=== PATIENT | female | born 1975 | race Caucasian/White ===

== ENCOUNTER 2016-09-11 12:59 | Observation (INO) | payer OTHER ==
--- NOTE | 2016-09-11 14:19 | EDPHY ---
H & P Stated Complaint: SA Source: Family - Personal History Current Tetanus Diphtheria and Acellular Pertussis (TDAP): Unsure - Medical/Surgical History Hx Asthma: Yes Hx Chronic Respiratory Disease: No Hx Diabetes: No Hx Cardiac Disease: No Hx Renal Disease: No Hx Cirrhosis: No Hx Alcoholism: No Hx HIV/AIDS: No Hx Splenectomy or Spleen Trauma: No - Social History Smoking Status: Former smoker HPI/ROS: CHIEF COMPLAINT: Chronic pain, ingestion of multiple pain medications HISTORY OF PRESENT ILLNESS: patient has a history of stage IV colon cancer, she is on home hospice. She had missed at 10:00 a.m. taking multiple doses of morphine, Dilaudid and methadone. She wants to intervene and she did not want to kill herself. She denies any suicidal ideation. She has 4 out of 10 pain despite all this. She has chronic abdominal pain due to this without any positive prognosis. REVIEW OF SYSTEMS: Ten systems reviewed and are negative unless otherwise noted in the HPI EXAMINATION General Appearance: Somnolence but awakes easily Head: normocephalic, atraumatic Eyes: Pupils equal and round, no conjunctival pallor or injection ENT, Mouth: Mucous membranes moist Neck: Normal inspection, supple, non-tender Respiratory: Lungs are clear to auscultation Cardiovascular: tachycardic but regular rhythm. Gastrointestinal: Abdomen is soft , but tender in all quadrants. No rigidity or tympany Neurological: alert to person and place. Intermittently Alert time. No focal deficits obtainable Skin: Warm and dry, no rash Extremities: Nontender, no pedal edema DIFFERENTIAL DIAGNOSES: Including but not limited to MDM: Intentional excessive intake of multiple narcotics without intent of dying. Patient admits to wanting her pain. Does not want to , but the pain was severe enough that it has caused her to think about this. We discussed this with the family actually do want her admitted for observation. I have discussed the case with the hospitalist, she will be admitted to the ICU for Close monitoring at this time. SUPERVISION: Patient was evaluated in conjunction with the supervising physician. Please see their note for details. (Aaron Hawley) Constitutional: Initial Vital Signs Temperature (C) 37.2 C 09/11/16 13:30 Heart Rate 122 H 09/11/16 13:30 Respiratory Rate 14 09/11/16 13:30 Blood Pressure 122/79 H 09/11/16 13:30 O2 Sat (%) 96 09/11/16 13:30 O2 Delivery Mode Nasal Cannula O2 (L/minute) 2 Home Medications: Medication Instructions Recorded HYDROmorphONE HCL [Dilaudid] 8 mg PO Q1-2PRN PRN 09/11/16 LORazepam [Ativan (*)] 0.5 mg PO DAILY PRN 09/11/16 Methadone HCl [Methadone 5 mg (*)] 5 mg PO TID 09/11/16 Methadone HCl [Methadone HCl 10 mg 10 mg PO TID 09/11/16 (*)] Ondansetron Odt [Zofran Odt 4 mg 8 mg PO Q4 PRN 09/11/16 (*)] morphINE SR [Ms Contin/Oramorph 100 mg PO BID 09/11/16 100 mg (*)] Medical Decision Making ED Course/Re-evaluation: This patient was seen and examined by me. She opens her eyes to voice. Decreased respiratory effort, lungs are clear to auscultation. Oxygen saturation is adequate on 2 L by nasal cannula. I discussed this case with patient's fiancee and her hospice caregivers. No suicidal intent. Given long- acting narcotics and respiratory depression, I will admit her to the ICU for observation. (Susan Schmid) - Data Points Medications Given: Discontinued Medications Sodium Chloride (Ns) 1,000 mls @ 0 mls/hr IV ONCE ONE PRN Reason: Wide Open Stop: 09/11/16 14:23 Last Admin: 09/11/16 14:42 Dose: 1,000 mls Departure - Departure Disposition: [facility] Inpatient Acute Clinical Impression: Narcotic overdose Qualifiers: Encounter type: initial encounter Injury intent: undetermined intent Qualifier Code: (T40.604A) Poisoning by unspecified narcotics, undetermined, initial encounter Colon cancer Qualifiers: Colon location: unspecified part of colon Qualifier Code: (C18.9) Malignant neoplasm of colon, unspecified Condition: Serious
[2016-09-11] MEDS ORDERED: NS 1,000 ML IV ONE (14:22)
[2016-09-11 15:50] VITALS: O2SAT 96
[2016-09-11] MEDS ORDERED: HYDROmorphONE/DILAUDID 1 MG/ML SYR IVP PRN (16:38)
[2016-09-11] MEDS ORDERED: PROMETHAZINE HCL 25 MG/ML INJ IVP PRN (16:38)
[2016-09-11] MEDS ORDERED: LORazepam 2 MG/ML INJ IVP PRN (16:38)
[2016-09-11] MEDS ORDERED: ONDANSETRON DISINTEGRATING 4 MG TAB PO PRN ×2 (16:38→16:42)
[2016-09-11] MEDS ORDERED: oxyCODONE IR 5 MG TAB PO PRN (16:38)
[2016-09-11] MEDS ORDERED: LORazepam 0.5 MG TAB PO PRN ×2 (16:38→16:42)
[2016-09-11] MEDS ORDERED: ONDANSETRON 4 MG/2 ML VIAL IVP PRN (16:38)
[2016-09-11] MEDS ORDERED: ACETAMINOPHEN 325 MG TAB PO PRN (16:38)
[2016-09-11] MEDS ORDERED: NS 1,000 ML IV SCH (16:45)
[2016-09-11] MEDS ORDERED: HYDROmorphONE/DILAUDID 4 MG TAB PO PRN (17:30)
[2016-09-11 21:43] VITALS: BP 122/55; PULSE 80; RESP 16; TEMP 97.6
--- NOTE | 2016-09-11 22:17 | GHP ---
[f rep st] HISTORY AND PHYSICAL DATE OF ADMISSION: 09/11/2016 CHIEF COMPLAINT: Inadvertent narcotic overdose. HISTORY: This is a 41-year-old female who is currently under the care of home hospice for stage IV colon cancer. She presents after overdosing on her pain medications, which include methadone, MS Contin, short-acting morphine, as well as long and short-acting Dilaudid. She states she took at least 11 of her methadone tablets, which are 5 mg tablets, as well as 100 mg of MS Contin. She states that she has been really declining of late and that her goal with taking these medications was to primarily get out of pain, but also she states that she was hoping that it could hasten the end of her life. She notes that she has no treatment options at this point, and has been declining to the point where she is really unable to do anything that she enjoys including eating and walking. She is accompanied here by her fiance who acknowledges that she has been in a fairly rapid decline. I did ask her what her goals were with presenting to the hospital being that she is under hospice care, and she stated that she was just extremely uncomfortable after the overdose with symptoms of nausea and general discomfort, and for that reason opted to come to the ER. She is clear that she does not want anything done, which would have the effect of extending her life. Her fiance present at bedside acknowledges that this is in keeping with her prior goals of care. PAST MEDICAL HISTORY: Includes: 1. Stage IV colon cancer. 2. Chronic pain with continuous narcotic use and dependency. PAST SURGICAL HISTORY: The patient has had colon resection with ileostomy. FAMILY HISTORY: This is reviewed and noncontributory. SOCIAL HISTORY: Patient is engaged, is accompanied here by her fiance. She is under hospice care currently. REVIEW OF SYSTEMS: A 10-point review of systems obtained negative except as per HPI. MEDICATIONS: Include: 1. Zofran. 2. Methadone. 3. Lorazepam. 4. Dilaudid. 5. Gabapentin. 6. Per patient's report, she is also on MS Contin, short-acting morphine, and long-acting Dilaudid. ALLERGIES: No known drug allergies. PHYSICAL EXAMINATION: VITAL SIGNS: BP 94/79, heart rate 78, respiratory rate 10, O2 sats 96% on 2 L, temperature is 36.8. GENERAL APPEARANCE: This is a chronically ill-appearing female. She is somnolent, but easily arousable. EYES : Anicteric. HEENT: Oropharynx is clear, MMM. CARDIOVASCULAR: RRR, mildly tachycardic. LUNGS: CTA bilaterally to anterior exam, patient is breathing shallowly. ABDOMEN: Soft, nontender. Positive bowel sounds. EXTREMITIES: No clubbing, cyanosis, or edema. SKIN: Pale, warm, dry. NEURO/PSYCH: Patient is somnolent, but easily arousable. She is oriented and clearly understands what is going on. Her mood does appear to be euthymic despite dealing with a very difficult situation. LABORATORY DATA: Most recent labs were reviewed from [facility], at which time she had a normal CBC and relatively normal BMP. IMAGING: Most recent CT chest, abdomen, pelvis showed bilateral pulmonary nodules measuring up to 8 mm. An enlarged superior mediastinal lymph node concerning for metastatic disease. There were several high attenuation pelvic masses, as well as several subcentimeter peritoneal nodules within the abdomen and pelvis concerning for peritoneal metastatic disease. ASSESSMENT: This is a 41-year-old female with a past medical history of stage IV colon cancer currently undergoing hospice care, who presents status post narcotic overdose. 1. Narcotic overdose. This was in the setting of severe chronic pain and a terminal illness, for which she is currently undergoing hospice care. Patient is not exactly suicidal, although given her life expectancy and chronic pain, she is somewhat here for her life and suffering to be over. At this point, she is wanting to be hospitalized just due to the discomfort of her overdose and difficulty managing her by her boyfriend, but she does not want any life- sustaining measures. 2. Metastatic colon cancer. She is status post multiple surgical interventions performed at the [facility]. She has had an ileostomy and takedown, and despite surgical resection, chemo and radiation, her prognosis has been grim. Otherwise as per above. 3. Chronic pain with continuous narcotic use and dependency. Will attempt to manage her pain though will not resume her methadone tonight given that she took what sounds to be greater than 50-100 mg of methadone. 4. Disposition. Observation status. Patient likely will need less than 48 hours stay for evaluation and management of above. CODE STATUS: DNR. Patient is new to my care. Old records reviewed including records found on [facility] from [facility]. Further history obtained from patient's fiancee present at bedside. Care plan reviewed with the ER physician, including plans for overnight observation. /[id number]/MODL [id number]
--- NOTE | 2016-09-11 22:57 | PDIAF ---
- Diagnosis Code Status: Do Not Resuscitate - Medication Management Discharge Medications: Medications to Continue on Transfer Acetaminophen [Tylenol 325mg (*)] 650 mg PO Q4HRS PRN #0 tab 09/11/16 [Last Taken Unknown] Gabapentin [Neurontin 100 MG (*)] 100 mg PO 09/11/16 [Last Taken Unknown] HYDROmorphONE HCL [Dilaudid] 8 mg PO Q1-2PRN PRN 09/11/16 [Last Taken 09/11/16] LORazepam [Ativan (*)] 0.5 mg PO DAILY PRN 09/11/16 [Last Taken 09/11/16] Methadone HCl [Methadone 5 mg (*)] 5 mg PO TID 09/11/16 [Last Taken 09/11/16] Methadone HCl [Methadone HCl 10 mg (*)] 10 mg PO TID 09/11/16 [Last Taken ] Ondansetron Odt [Zofran Odt 4 mg (*)] 8 mg PO Q4 PRN 09/11/16 [Last Taken Unknown] Discharge Medications: Refer to the Discharge Home Medication list for PRN reason. - Orders Services needed: Home Care, Registered Nurse Home Care Face to Face: I certify that this patient was under my care and that I had the required [id number] encounter meeting the encounter requirements on the discharge day. My findings support the fact that the patient is homebound as defined in CMS Chapter 7 Medicare Benefits Manual 30.1.1, The condition of the patient is such that there exists a normal inability to leave home and consequently, leaving home would require a considerable and taxing effort. Diet Recommendation: no restrictions on diet - Follow Up Care Current Providers and Referrals: Patient,NotPresent [Unknown] - As per Instructions Steven Méndez DO [Doctor of Osteopathy] - As per Instructions
--- NOTE | 2016-09-12 07:56 | PDDCSUM ---
[id number] # narcotic overdose: inadvertent, patient is however on hospice and does not want any care that would extend her life, she is clear about this # metastatic colon cancer: end stage, no further operative interventions # chronic pain with continuous narcotic use and dependency: continue her outpatient regimen after dc # acute encephalopathy: in setting of opiate od Dispo: dc to home with home hospice
== END 2016-09-11 23:30 | disposition hospice, home (50) ==
LOC: INTOOBSV 14:22 → F2N 15:59
PROVIDERS: ADMIT Internal Medicine; ATTEND Internal Medicine
DX: T40.2X4A Poisoning by other opioids, undetermined, initial encounter (principal); T40.3X4A Poisoning by methadone, undetermined, initial encounter; G89.3 Neoplasm related pain (acute) (chronic); C18.9 Malignant neoplasm of colon, unspecified; Z66 Do not resuscitate
CPT/HCPCS: G0378 ×2; J1170